=== PATIENT | male | born 1955 ===

== ENCOUNTER 2016-09-10 14:15 | Emergency (ER) | payer MEDICAID, OTHER ==
[2016-09-10] MEDS ORDERED: Albuterol 0.083% Inhal Sol (2.5 mg/3 mL) UD IH STA (15:31)
--- NOTE | 2016-09-10 15:33 | C.PDOC ---
History Of Present Illness 60 yo male w/PMHx of HTN come in for evaluation of nasal congestion, sore throat and productive cough with white sputum gradually worsen fora past few days. Pt reports, " was unable to sleep due to cough last night". Otherwise, pt denies fever, chills, headache, dizziness, neck pain, drooling, dysphagia, dyspnea, CP, SOB, abd. pain, N/V/D, back pain. Ambulate to ED for evaluation, not in any apparent distress. Time Seen by Provider: 09/10/16 14:50 Chief Complaint (Nursing): Cough, Cold, Congestion History Per: Patient Onset/Duration Of Symptoms: Gradual Past Medical History Reviewed: Historical Data, Nursing Documentation, Vital Signs Vital Signs: Last Vital Signs Temp 97.5 F L 09/10/16 14:43 Pulse 70 09/10/16 14:43 Resp 19 09/10/16 14:43 BP 138/77 09/10/16 14:43 Pulse Ox 99 09/10/16 14:43 - Medical History PMH: HTN Denies: Hypercholesterolemia, Hypothyroidism Surgical History: No Surg Hx - [facility] Procedures INJECT/INFUSE NEC (08/09/05) Family History: States: CAD, Hypertension - Social History Hx Tobacco Use: No Hx Alcohol Use: No Hx Substance Use: No - Immunization History Hx Tetanus Toxoid Vaccination: No Hx Influenza Vaccination: No Hx Pneumococcal Vaccination: Yes Review Of Systems Except As Marked, All Systems Reviewed And Found Negative. Constitutional: Negative for: Fever, Chills, Malaise ENT: Positive for: Nose Discharge, Nose Congestion, Throat Pain. Negative for: Ear Discharge, Throat Swelling Respiratory: Positive for: Cough, Sputum. Negative for: Shortness of Breath, Wheezing Gastrointestinal: Negative for: Nausea, Vomiting, Abdominal Pain Genitourinary: Negative for: Dysuria, Frequency, Incontinence Musculoskeletal: Negative for: Neck Pain, Back Pain Skin: Negative for: Rash Neurological: Negative for: Weakness, Numbness, Altered Mental Status, Headache , Dizziness Physical Exam - Physical Exam Appears: Well, No Acute Distress Skin: Normal Color, Warm, Dry, No Rash Eye(s): bilateral: Normal Inspection Ear(s): Bilateral: Normal Nose: Discharge (B/L nasal congestion with scant clear rhinorhea) Oral Mucosa: Moist, No Drooling Tongue: Normal Appearing, No Swelling Lips: Normal Appearing, No Swelling Throat: Erythema (mild B/L), No Exudate, No Drooling, Other (post-nasal drip) Neck: Normal, Normal ROM, Trachea Midline, Supple Cardiovascular: Rhythm Regular Respiratory: No Decreased Breath Sounds, No Accessory Muscle Use, No Stridor, Wheezing (scattered Right base expiratory wheezing. BS equal B/L.) Gastrointestinal/Abdominal: Normal Exam, Soft, No Tenderness, No Distention, No Guarding Back: Normal Inspection, No CVA Tenderness Extremity: Normal ROM, No Pedal Edema Neurological/Psych: Oriented x3, Normal Speech, Normal Motor, Normal Sensation, Normal Reflexes ED Course And Treatment O2 Sat by Pulse Oximetry: 99 Pulse Ox Interpretation: Normal Progress Note: On re-eval, ptis afebrile, hemodynamicaly stable. NOn-toxic. Tolerate PO well in ED. ENT: exam c/w mid pharyngitis. Neck: (-) meninegal sign . Lungs: CTA B/L, BS equal B/L. Abd: benign. Neurologicaly intact. Pt has clinical findings c/w acute bronchitis with asthmatic component. Pt received tx in ED with mod improvement in sx. Pt advised and ref. to F/u with PMD in 2-3 days for re-eval. return if any new changes. Disposition Counseled Patient/Family Regarding: Diagnosis, Need For Followup, Rx Given - Disposition Referrals: Kyler Davis MD [Medical Doctor] - Disposition: HOME/ ROUTINE Disposition Time: 16:02 Condition: STABLE Additional Instructions: Encourage fluids Take medication as prescribed Follow up with PMD In 2-3 days for re-evaluation. Return to ED if any worsening or new changes. Prescriptions: Prednisone [Deltasone] 20 mg PO DAILY #3 tablet Benzonatate [Tessalon Perle] 100 mg PO TID #14 capsule Albuterol HFA [Ventolin HFA 90 mcg/actuation (8 g)] 1 puff IH Q6 #1 inhaler Azithromycin [Zithromax] 250 mg PO DAILY #4 tab Instructions: Acute Bronchitis (ED), Wheezing (ED) Forms: Work Excuse - Clinical Impression Clinical Impression: Bronchitis, Reactive airway disease
[2016-09-10] MEDS ORDERED: Albuterol 0.083% Inhal Sol (2.5 mg/3 mL) UD ONE (15:45)
[2016-09-10 19:13] VITALS: BP 120/69; PULSE 72; RESP 18; TEMP 98.2; O2SAT 98
--- NOTE | 2016-09-18 12:18 | CARD ---
APPROVED REPORT EKG Measurement Heart [id number] <Conclusion> Normal sinus rhythm Normal Electrocardiogram
== END 2016-09-10 18:05 | disposition home or self-care (01) ==
LOC: C.ER 14:15
DX: J40 Bronchitis, not specified as acute or chronic (principal); J98.9 Respiratory disorder, unspecified

== ENCOUNTER 2017-07-15 11:31 | Emergency (ER) | payer SELFPAY ==
[2017-07-15 11:43] VITALS: BP 136/87; PULSE 75; TEMP 97.3; O2SAT 98
[2017-07-15] MEDS ORDERED: Naproxen 550 mg Tab PO STA (13:20)
[2017-07-15] MEDS ORDERED: Naproxen 550 mg Tab PO ONE (13:28)
--- NOTE | 2017-07-15 14:00 | RAD ---
HISTORY: Cough COMPARISON: No prior. TECHNIQUE: Chest PA and lateral FINDINGS: LUNGS: No active pulmonary disease. PLEURA: No significant pleural effusion identified. No pneumothorax apparent. CARDIOVASCULAR: Normal. OSSEOUS STRUCTURES: No significant abnormalities. VISUALIZED UPPER ABDOMEN: Normal. OTHER FINDINGS: None. IMPRESSION: No active disease.
--- NOTE | 2017-07-15 14:15 | C.PDOC ---
Time Seen by Provider: 07/15/17 13:10 Chief Complaint (Nursing): Cough, Cold, Congestion History Per: Patient Onset/Duration Of Symptoms: Days (3) Current Symptoms Are (Timing): Still Present Associated Symptoms: Fever, Sore Throat, Cough, Nasal Congestion Severity: Moderate Additional History Per: Prior Records Past Medical History Reviewed: Historical Data, Nursing Documentation, Vital Signs Vital Signs: Last Vital Signs Temp 97.3 F L 07/15/17 11:37 Pulse 75 07/15/17 11:37 Resp 16 07/15/17 11:37 BP 136/87 07/15/17 11:37 Pulse Ox 98 07/15/17 11:37 - Medical History PMH: HTN, Hypothyroidism - [facility] Procedures INJECT/INFUSE NEC (08/09/05) Family History: States: CAD, Hypertension - Social History Hx Tobacco Use: No Hx Alcohol Use: No Hx Substance Use: No - Immunization History Hx Tetanus Toxoid Vaccination: No Hx Influenza Vaccination: No Hx Pneumococcal Vaccination: No Review Of Systems Except As Marked, All Systems Reviewed And Found Negative. Constitutional: Positive for: Fever, Malaise ENT: Positive for: Nose Congestion, Throat Pain Respiratory: Positive for: Cough. Negative for: Shortness of Breath Gastrointestinal: Negative for: Vomiting, Abdominal Pain, Diarrhea Musculoskeletal: Negative for: Neck Pain Skin: Negative for: Rash Neurological: Negative for: Weakness, Numbness, Seizures, Altered Mental Status Physical Exam - Physical Exam Appears: Non-toxic, No Acute Distress Skin: Normal Color, Warm, Dry, No Rash Head: Atraumatic, Normacephalic Eye(s): bilateral: PERRL, EOMI Ear(s): Bilateral: Normal Oral Mucosa: Moist, No Drooling, No Trismus Throat: Erythema, No Exudate, No Drooling, No Mass Neck: Normal ROM, Supple Cardiovascular: Rhythm Regular Respiratory: Normal Breath Sounds, No Accessory Muscle Use Gastrointestinal/Abdominal: Soft, No Tenderness Back: No CVA Tenderness Extremity: Normal ROM, No Pedal Edema, No Calf Tenderness Neurological/Psych: Oriented x3, Normal Speech, Normal Motor, Normal Sensation ED Course And Treatment ECG: Interpreted By Me, Viewed By Me ECG Rhythm: Sinus Rhythm, Nonspecific Changes ECG Interpretation: No Acute Changes Rate From EC O2 Sat by Pulse Oximetry: 98 Pulse Ox Interpretation: Normal - Radiology CXR: Viewed By Me, Read By Radiologist CXR Interpretation: Yes: No Acute Disease Reassessment Condition: Improved Disposition Counseled Patient/Family Regarding: Studies Performed, Diagnosis, Need For Followup, Rx Given - Disposition Referrals: Yokasta Arechiga MD [Medical Doctor] - Disposition: HOME/ ROUTINE Disposition Time: 14:15 Condition: STABLE Additional Instructions: Follow up with your doctor this week. Return to the ER if you develop high fever , shortness of breath, worsening of symptoms or if you have any other concerns. Prescriptions: Guaifenesin/Dextromethorphan [Mucinex Dm ER 1,200-60 mg Tab] 1 tab PO BID PRN # 14 tab.er.12h PRN Reason: Cough And Congestion Naproxen [Naprosyn] 1 tab PO BID PRN #20 tab PRN Reason: Pain Oxymetazoline 0.05% [Oxymetazoline HCl 30 Ml] 2 sprays NS BID #1 bottle Instructions: Cold Symptoms (ED) Forms: [employer] (Anguillan) Print Language: ALBANIAN - Clinical Impression Clinical Impression: Upper respiratory infection
[2017-07-15 14:26] VITALS: RESP 20
--- NOTE | 2017-07-16 11:56 | CARD ---
APPROVED REPORT EKG Measurement Heart [id number] <Conclusion> Normal sinus rhythm with sinus arrhythmia Inferior infarct, age undetermined Abnormal ECG
== END 2017-07-15 14:25 | disposition home or self-care (01) ==
LOC: C.ER 11:31
DX: J06.9 Acute upper respiratory infection, unspecified (principal); I10 Essential (primary) hypertension

== ENCOUNTER 2018-10-13 09:30 | Emergency (ER) | payer MEDICAID ==
[2018-10-13 10:50] LABS: BASO % 1.1 % (0.0-2.0); EOS # 0.2 K/uL (0.0-0.7); EOS % 4.8 % (0.0-4.0); HEMOGLOBIN 14.6 g/dL (12.0-18.0); LYMPH # 1.7 K/uL (1.0-4.3); MEAN CELL VOLUME 87.2 fL (80.0-94.0); MEAN CORPUSCULAR HEMOGLOBIN 30.2 pg (27.0-31.0); MEAN CORPUSCULAR HGB CONC 34.6 g/dL (33.0-37.0); MONO # 0.4 K/uL (0.0-0.8); MONO % 8.9 % (0.0-10.0); NEUT # 2.1 K/uL (1.8-7.0); NEUT % 47.2 % (50.0-75.0); NRBC % 0.1 % (0.0-2.0); RBC 4.84 Mil/uL (4.40-5.90); RED CELL DISTRIBUTION WIDTH 13.7 % (11.5-14.5); WHITE BLOOD COUNT 4.4 K/uL (4.8-10.8)
--- NOTE | 2018-10-13 10:53 | C.PDOC ---
History Of Present Illness 62 year old male with PMHx of hypertension and hyperlipidemia presents to ED with complaint of sore throat for the past 4 days. Patient states that he feels a burning sensation in his throat that radiates to his left arm and chest. P atient states that the chest pain is reproducible when he presses on his chest. He notes that he tried to see his PMD, Dr. Arechiga, but could not get an appointment so he came to the ED. Patient denies increased sweating, nausea, vomiting, changes in voice, difficulty swallowing food/ liquids, fever, chills, night sweats, leg swelling, urinary complaints, abdominal pain, dark/ bloody stool. He denies any headache, temporal pain or vision complaints. No Jaw pain. Time Seen by Provider: 10/13/18 10:04 Chief Complaint (Nursing): ENT Problem History Per: Patient History/Exam Limitations: no limitations Onset/Duration Of Symptoms: Days (4) Current Symptoms Are (Timing): Still Present Location Of Pain: Throat Associated Symptoms: Sore Throat. denies: Fever, Chills, Cough, Sputum, Sinus Drainage, Nasal Congestion, Nausea, Vomiting, Diarrhea Ear Symptoms: Bilateral: None Past Medical History Reviewed: Historical Data, Nursing Documentation, Vital Signs Vital Signs: Last Vital Signs Temp 97.6 F 10/13/18 09:51 Pulse 53 L 10/13/18 10:24 Resp 11 L 10/13/18 10:24 BP 148/82 10/13/18 10:24 Pulse Ox 95 10/13/18 10:24 Primary Care Provider: Yokasta Arechiga - Medical History PMH: COPD, HTN, Hyperlipidemia, Hypothyroidism Denies: Chronic Kidney Disease Surgical History: - [facility] Procedures INJECT/INFUSE NEC (08/09/05) Family History: States: Unknown Family Hx, CAD, Hypertension - Social History Hx Tobacco Use: No Hx Alcohol Use: No Hx Substance Use: No - Immunization History Hx Tetanus Toxoid Vaccination: No Hx Influenza Vaccination: No Hx Pneumococcal Vaccination: No Review Of Systems Constitutional: Negative for: Fever, Chills, Sweats, Weakness Eyes: Negative for: Pain, Vision Change, Conjunctivae Inflammation ENT: Positive for: Throat Pain. Negative for: Ear Pain, Ear Discharge, Nose Pain, Nose Discharge, Nose Congestion, Mouth Pain, Mouth Swelling, Other (vocal changes, difficulty swallowing) Cardiovascular: Positive for: Chest Pain. Negative for: Paroxysmal Noc. Dys pnea, Edema Respiratory: Negative for: Cough, Shortness of Breath Gastrointestinal: Negative for: Nausea, Vomiting, Abdominal Pain, Diarrhea, Constipation, Melena, Hematochezia Genitourinary: Negative for: Dysuria, Frequency, Hematuria Musculoskeletal: Positive for: Arm Pain (left arm). Negative for: Neck Pain, Shoulder Pain, Back Pain, Hand Pain, Foot Pain, Other (leg swelling) Skin: Negative for: Rash Neurological: Negative for: Weakness, Numbness, Headache Physical Exam - Physical Exam Appears: Well, Non-toxic, No Acute Distress Skin: Warm, Dry Head: Atraumatic, Normacephalic, No Tenderness, No Other (temporal pain) Eye(s): bilateral: Normal Inspection, PERRL, EOMI Ear(s): Bilateral: Normal Nose: Normal, No Septal Hematoma Oral Mucosa: Moist Tongue: Normal Appearing Lips: Normal Appearing Teeth: Normal Dentition Gingiva: Normal Appearing Throat: Normal, No Erythema, No Exudate, No Mass, Other (uvulla midline, normal phonation) Neck: Normal ROM, Trachea Midline, Supple, No Other (meningeal signs- negative kernig's and brudzinskis) Lymphatic: No Adenopathy (cervical or posterior) Chest: Symmetrical, No Deformity, No Tenderness Cardiovascular: Rhythm Regular, No Friction Rub Respiratory: No Rales, No Rhonchi, No Wheezing Gastrointestinal/Abdominal: Soft, No Tenderness, No Distention Back: Normal Inspection, No CVA Tenderness, No Vertebral Tenderness Extremity: Normal ROM, Capillary Refill (<2 seconds) Extremity: Bilateral: Normal Color And Temperature, Normal ROM Pulses: Left Dorsalis Pedis: Normal, Right Dorsalis Pedis: Normal Neurological/Psych: Oriented x3, Normal Speech, Normal Cognition, Normal Cranial Nerves, No Cerebellar Signs, Normal Motor, Normal Sensation Gait: Steady ED Course And Treatment - Laboratory Results Result Diagrams: 10/13/18 10:46 10/13/18 10:46 O2 Sat by Pulse Oximetry: 95 (in RA) Pulse Ox Interpretation: Normal - Other Rad CXR X-Ray: Interpreted by Me, Viewed By Me Interpretation: IMPRESSION: There is vague patchy opacity in the left lung base which may represent some combination of atelectasis and/or infiltrate and possible small effusion.. Mild right basilar atelectasis. Changes are felt to be exacerbated by poor inspiration. Medical Decision Making Medical Decision Making: Impression: 62 year old male with PMHx of hypertension and hyperlipidemia presents to ED with complaint of sore throat for the past 4 days. No change in phonation or dysphiaga. No odynophagia. No massess noted or lymph node enlargement. No neuro complaints or chest pain or body aches. Chest pain reproducible to palpation. Heart score: EK Story: 0 RF: 1 trop: pending age: 1 Initial Plan: EKG CMP troponin CBC CXR Rapid strep Pepcid PO EKG: Sinus Bradycardia 54 bpm. No STEMI. CXR: There is vague patchy opacity in the left lung base which may represent some combination of atelectasis and/or infiltrate and possible small effusion..Mild right basilar atelectasis. Changes are felt to be exacerbated by poor inspiration MDM: Viral pharyngitis vs. Chest wall pain likely bronchitis vs CAP on PNA? will have pt followup w/ pulm. Z pack given for likely bronchitis. serology unremarakble. No appreciable effusion on lung exams b/l. No chest pain when re-evaluated. Given overall well appearance. low risk cp and throat exam unremarakble w/ out alarm signs pt to follow up outpt. Disposition - Disposition Referrals: Didier Padilla MD [Staff Provider] - Manju Paredes MD [Staff Provider] - Yokasta Arechiga MD [Medical Doctor] - [facility] [Outside] [facility] [Outside] [facility] [Outside] Antonio Cabrera MD [Staff Provider] - Disposition: HOME/ ROUTINE Disposition Time: 12:29 Condition: STABLE Additional Instructions: IVAN PALENCIA, thank you for letting us take care of you today. Your provider was Vega Garcia and you were treated for SORE THROAT/COUGHING. The emergency medical care you received today was directed at your acute symptoms. If you were prescribed any medication, please fill it and take as directed. It may take several days for your symptoms to resolve. Return to the Emergency Department if your symptoms worsen, do not improve, or if you have any other problems. Please contact your doctor or call one of the physicians/clinics you have been referred to that are listed on the Patient Visit Information form that is included in your discharge packet. Bring any paperwork you were given at discharge with you along with any medications you are taking to your follow up visit. Our treatment cannot replace ongoing medical care by a primary care provider outside of the emergency department. Thank you for allowing the [facility] team to be part of your care today. If you had an X-Ray or CT scan: A Radiologist will review the ED reading if any change in treatment is needed we will contact you. If you had a blood, urine, or wound culture: It will take several days for the results, if any change in treatment is needed we will contact you. If you had an STI test: It will take 48 hours for the results. Please call after 1 week if you have not heard back. Prescriptions: Azithromycin [Z-Ludwin] 250 mg PO DAILY #6 tab Instructions: Viral Pharyngitis, Chest Pain (DC) Forms: [employer] (Icelandic) - Clinical Impression Clinical Impression: Chest pain, Sore throat, Atelectasis - Scribe Statement The provider has reviewed the documentation as recorded by the Scribe (Geena Vigil) All medical record entries made by the Scribe were at my direction and personally dictated by me. I have reviewed the chart and agree that the record accurately reflects my personal performance of the history, physical exam, medical decision making, and the department course for this patient. I have also personally directed, reviewed, and agree with the discharge instructions and disposition.
[2018-10-13 11:04] LABS: ALB/GLOB RATIO 1.2 (1.0-2.1); ALBUMIN 4.4 g/dL (3.5-5.0); ALT/SGPT 30 U/L (21-72); AST/SGOT 25 U/L (17-59); BLOOD UREA NITROGEN 11 mg/dL (9-20); GFR NON-AFRICAN AMERICAN > 60
--- NOTE | 2018-10-13 11:29 | RAD ---
Date of service: 10/13/2018 HISTORY: Chest pain radiating from neck COMPARISON: Comparison chest dated 07/15/2017 TECHNIQUE: 1 view obtained. FINDINGS: LUNGS: There is vague patchy opacity in the left lung base which may represent some combination of atelectasis and/or infiltrate and possible small effusion.. Mild right basilar atelectasis. Changes are felt to be exacerbated by poor inspiration. PLEURA: No significant pleural effusion identified, no pneumothorax apparent. CARDIOVASCULAR: Mild cardiomegaly. No aortic atherosclerotic calcification present. Normal cardiac size. No pulmonary vascular congestion. OSSEOUS STRUCTURES: No significant abnormalities. VISUALIZED UPPER ABDOMEN: Normal. OTHER FINDINGS: None. IMPRESSION: There is vague patchy opacity in the left lung base which may represent some combination of atelectasis and/or infiltrate and possible small effusion.. Mild right basilar atelectasis. Changes are felt to be exacerbated by poor inspiration.
[2018-10-13 12:51] VITALS: TEMP 98
[2018-10-13 13:13] VITALS: BP 139/77; PULSE 67; RESP 20
[2018-10-14 13:07] VITALS: O2SAT 95
--- NOTE | 2018-10-16 03:36 | CARD ---
APPROVED REPORT Date of service: 10/13/2018 EKG Measurement Heart [id number] <Conclusion> Sinus bradycardia Possible Anterior infarct, age undetermined Abnormal ECG
== END 2018-10-13 13:11 | disposition home or self-care (01) ==
LOC: C.ER 09:30
DX: J98.11 Atelectasis (principal); R07.9 Chest pain, unspecified; J02.9 Acute pharyngitis, unspecified; I10 Essential (primary) hypertension; J44.9 Chronic obstructive pulmonary disease, unspecified